=== PATIENT | female | born 1975 | race Caucasian/White ===

== ENCOUNTER 2017-11-17 11:46 | Emergency (ER) | payer MEDICAID ==
[~2017-11-17] VITALS: Ht 154.9 cm; Wt 62.3 kg
[2017-11-17 12:06] VITALS: Ht 154.9 cm; Wt 62.3 kg
[2017-11-17] MEDS ORDERED: VIBRAMYCIN 100100 MG PO (14:51)
[2017-11-17] MEDS ORDERED: TYLENOL W/CODEI1 TAB PO (14:51)
[2017-11-17 15:12] VITALS: BP 118/068
== END 2017-11-17 15:15 | disposition home or self-care (01) ==
LOC: D.ER 11:46
DX: L03.114 Cellulitis of left upper limb (principal); L03.113 Cellulitis of right upper limb; L03.116 Cellulitis of left lower limb; L03.115 Cellulitis of right lower limb; F17.200 Nicotine dependence, unspecified, uncomplicated